=== PATIENT | male | born 1985 | race African-American/Black ===

== ENCOUNTER 2018-11-30 13:39 | Emergency (ER) | payer SELFPAY | END 2018-11-30 14:01 | disposition home or self-care (01) | LOC: ERS 13:39 | DX: R21 Rash and other nonspecific skin eruption (principal); F17.210 Nicotine dependence, cigarettes, uncomplicated | CPT/HCPCS: 99282 ==

== ENCOUNTER 2019-04-05 22:25 | Emergency (ER) | payer SELFPAY ==
[2019-04-05] MEDS ORDERED: Lidocaine 1% PF 5 ML VIAL ONE (23:23)
[2019-04-05] MEDS ORDERED: cefTRIAXone\\ROCEPHIN 250 MG VIAL ONE (23:23)
[2019-04-05] MEDS ORDERED: Azithromycin 250 MG TAB ONE (23:23)
[2019-04-05 23:33] LABS: Bilirubin Negative (Negative); Blood, Urine Negative (Negative); Clarity CLEAR (Clear); Glucose, Urine (Dipstick) Negative (Negative); Leukocyte Small (Negative); Nitrite Negative (Negative); Protein, Urine (Dipstick) Negative (Neg-Trace); Specific Gravity, Urine 1.013 (1.002-1.036); Urobilinogen 0.2 mg/dL (0.2-1.0)
[2019-04-05 23:35] LABS: Bacteria/HPF None Seen HPF (None Seen); Hyaline Casts/LPF 0-3 HYALINE CAST LPF (0-3 Hyaline); RBC/HPF 0-3 HPF (0-3); Squamous Epithelial None Seen HPF (0-3); WBC/HPF 21-50 HPF (0-3)
[2019-04-06 23:58] LABS: Chlam.trachomatis by PCR,Urine Not Detected (NotDetected)
== END 2019-04-05 23:00 | disposition home or self-care (01) ==
LOC: ERS 22:25
DX: R36.9 Urethral discharge, unspecified (principal); F17.210 Nicotine dependence, cigarettes, uncomplicated
CPT/HCPCS: 81003; 81015; 87491; 87591; 96372; J0696; J2001

== ENCOUNTER 2019-06-13 11:06 | Emergency (ER) | payer SELFPAY | END 2019-06-13 13:00 | disposition left against medical advice (07) | LOC: ERS 11:06 | DX: Z53.21 Procedure and treatment not carried out due to patient leaving prior to being seen by health care provider (principal); F17.210 Nicotine dependence, cigarettes, uncomplicated ==

== ENCOUNTER 2019-08-31 23:37 | Emergency (ER) | payer SELFPAY ==
[2019-09-01] MEDS ORDERED: Lidocaine 1% w/Epinephrine 1:100K 20 ML VIAL ONE
[2019-09-01] MEDS ORDERED: Bacitracin 1 PK ONE (00:32)
== END 2019-09-01 00:35 | disposition home or self-care (01) ==
LOC: ERS 23:37
DX: S01.111A Laceration without foreign body of right eyelid and periocular area, initial encounter (principal); W22.8XXA Striking against or struck by other objects, initial encounter
CPT/HCPCS: 12011; J2001

== ENCOUNTER 2019-09-09 12:18 | Emergency (ER) | payer SELFPAY | END 2019-09-09 12:52 | disposition home or self-care (01) | LOC: ERS 12:18 | DX: M54.41 Lumbago with sciatica, right side (principal); Z79.1 Long term (current) use of non-steroidal anti-inflammatories (NSAID) | CPT/HCPCS: 99283 ==

== ENCOUNTER 2019-09-15 13:27 | Emergency (ER) | payer SELFPAY | END 2019-09-15 13:44 | disposition home or self-care (01) | LOC: ERS 13:27 | DX: S01.111D Laceration without foreign body of right eyelid and periocular area, subsequent encounter (principal); W22.8XXD Striking against or struck by other objects, subsequent encounter ==

== ENCOUNTER 2023-11-17 23:56 | Emergency (ER) | payer OTHER, SELFPAY | END 2023-11-18 00:50 | disposition home or self-care (01) | LOC: ERS 23:56 | DX: S63.282A Dislocation of proximal interphalangeal joint of right middle finger, initial encounter (principal); W22.8XXA Striking against or struck by other objects, initial encounter | CPT/HCPCS: 26770 ==

== ENCOUNTER 2024-11-12 07:05 | Emergency (ER) | payer SELFPAY | END 2024-11-12 07:41 | disposition home or self-care (01) | LOC: ERS 07:05 | DX: B35.1 Tinea unguium (principal) | CPT/HCPCS: 99282 ==